=== PATIENT | male | born 1995 | race Hispanic/Latino ===

== ENCOUNTER 2023-11-11 17:00 | Inpatient (IN) | payer OTHER, SELFPAY ==
[2023-11-10] VITALS (7 sets, daily range): BP systolic 90–140; BP diastolic 69–87; BMI 33.3; BMI 33.1
--- NOTE | 2023-11-10 16:41 | ED.GENMED ---
History of Present Illness
<Davis Kirk MD - Last Filed: 11/10/23 22:31>
General
Chief Complaint: Abdominal Symptoms
Source: patient and family (Father)
Exam Limitations: none
Time Seen by Provider: 11/10/23 16:31
History of Present Illness
History of Present Illness:
28-year-old male complaining of diffuse nonlocalizing migratory abdominal pain. Started around midnight. Fairly sudden in nature. Had a normal bowel movement last evening. Had a fleeting episode like this in the past related to constipation but
self resolved. Very brief back pain but also self resolved. No true nausea or vomiting. No fever. No urinary symptoms. Pain waxes and wanes since midnight but never totally goes away. Seen in urgent care and referred to our hospital for
further care
Past History
<Davis Kirk MD - Last Filed: 11/10/23 22:31>
Past History
ED Past Medical History: None
ED Past Surgical History: Other (Jaw surgery)
Review of Systems
<Davis Kirk MD - Last Filed: 11/10/23 22:31>
Review of Systems
All Other Systems: Not applicable
Constitutional: Denies fever
Respiratory: Reports cough (Ongoing cough)
Phy Exam
<Davis Kirk MD - Last Filed: 11/10/23 22:31>
Physical Exam
Physical Exam:
GENERAL: Alert and oriented in no apparent distress
EYE: Orbits normal.
NECK: Supple, no significant adenopathy.
ENT: Pharynx without erythema
CARDIAC: Regular rate and rhythm without any obvious murmurs.
LUNGS: Clear breath sounds,normal
ABDOMEN: Soft, no obvious localizing tenderness. No rebound or guarding no mass or hernia. Testicles normal.
NEUROLOGICAL: Alert and oriented , grossly non-focal
SKIN: Warm and dry, no rash or lesion, no discoloration, skin intact.
MUSCULOSKELETAL: No edema,no deformity.Good color
PSYCH: Normal and appropriate interaction.
Course
<Davis Kirk MD - Last Filed: 11/10/23 22:31>
Orders/Labs/Results
Orders:
Orders
11/10/23 16:38
IV Insert/Care/Rem.- Treatment PRN
0.9% Sodium Chloride 1000 ml [Nss] 1,000 ml IV BOLUS
HYDROmorphone [Dilaudid] 0.5 mg IV NOW STA
Iohexol [Omnipaque] See Protocol PO NOW STA
Ondansetron Injectable [Zofran] 4 mg IV NOW STA
11/10/23 16:39
Electrocardiogram (*1) Stat
Reason for Study: Abdominal Pain
CT Abd/pel W Iv And Oral Contr Urgent
Comment:
Reason For Exam: Diffuse nonlocalizing abdominal pain
EKG- Treatment ONCE
11/10/23 16:42
Complete Blood Count/With Diff Urgent
Comprehensive Metabolic Panel Urgent
Lipase Urgent
Troponin I Urgent
Urinalysis Reflex To Culture Urgent
Date Specimen was Collected: 11/10/23
Time Specimen was Collected: 16:40
11/10/23 18:23
HYDROmorphone [Dilaudid] 0.5 mg .ROUTE .STK-MED ONE
11/10/23 18:25
HYDROmorphone [Dilaudid] 0.5 mg IV NOW STA
11/10/23 20:04
HYDROmorphone [Dilaudid] 0.5 mg IV NOW STA
11/10/23 20:12
Fentanyl Citrate/Pf [Sublimaze] 75 mcg IV NOW STA
11/10/23 20:39
Admit/Transfer Patient As Directed
Co-Sign Provider:
Level of Care: Observation services
Assign to:: Telemetry
Physician / Group: dr mason
Diagnosis: acute appendicits with confined perforation
Reason for Telemetry: Arrhythmia
Date to Stop Telemetry: 11/13/23
Time to Stop Telemetry: 11:00
11/10/23 20:40
PRN Pain Medication Management As Directed
May give lesser potent ordered pain med per pt: Yes
preference::
Protocol:: Medication orders for pain may be administered in a
manner that supports deferring to patient preference
when the pt is:
- Requesting an ordered lesser potent pain medication.
Least to most potent pain medications are defined
as: acetaminophen < NSAID < tramadol < opioids
(morphine, oxycodone, hydromorphone).
- Requesting a lesser dose of the same medication IF
ORDERED.
- Requesting a less intrusive route of administration
if both routes are prescribed by the provider (PO <
IV).
11/10/23 20:41
Code Status As Directed
Resuscitation Status: Full Code
11/10/23 20:48
Piperacillin/Tazo 3.375 Gram [Zosyn] 3.375 gram in 50 ml IV NOW
11/10/23 21:00
Flush (0.9% Sodium Chloride) [Flush (Nss)] See Dose Instructions IV PER PROTOCOL
11/10/23 21:05
Fentanyl Citrate/Pf [Sublimaze] 50 mcg IV NOW STA
11/10/23 21:08
HYDROmorphone [Dilaudid] 1 mg IV NOW STA
11/10/23 21:11
Ketorolac [Toradol] 15 mg IV NOW STA
11/10/23 21:12
CR Chest Portable - 1 View Stat
Comment:
Reason For Exam: cough x 2weeks
Reason Study Needs to be Portable: Unable to Transport
11/10/23 21:25
Lactic Acid Stat
11/10/23 22:27
Acetaminophen [Tylenol] 650 mg PO Q4HPRN PRN
Guaifenesin Solution [Robitussin] 200 mg PO Q4HPRN PRN
HYDROmorphone [Dilaudid] 1 mg IV Q2HPRN PRN
Ketorolac [Toradol] 15 mg IV Q6HPRN PRN
Normosol (Mult Electrolytes) [Normosol-R/Plasmalyte-A] 1,000 ml IV 100 mls/hr
Ondansetron Injectable [Zofran] 4 mg IV Q6HPRN PRN
11/10/23 22:27
Activity As Directed
Activity Level: Out of Bed-Early Mobility
Anti-embolism (WOO) Hose As Directed
Type: Thigh high
Intake/ Output As Directed
Frequency: Per unit guidelines
Notify MD As Directed
Notify physician if: notify surgeon for uncontrolled pain despite analgesics
Pneumatic Compression Sleeves As Directed
Type: Thigh high
Vital Signs As Directed
Frequency: Per unit guidelines
Rx Incentive Spirometry [RESP] Routine
Frequency: q1h while awake
# of times per hour: 10
DX Deep Vein Thrombosis Video Routine
11/11/23 03:00
Piperacillin/Tazo 3.375 Gram [Zosyn] 3.375 gram in 50 ml IV Q6H
11/11/23 Breakfast
NPO
Allow oral meds: Yes
Allow clear liquids: No
NPO with Ice Chips: No
Complete Blood Count/With Diff IN AM
Comprehensive Metabolic Panel IN AM
11/13/23 11:00
DC Protocol for Telemetry ONCE
Abnormal Lab Results
11/10/23
16:42
WBC 13.4 H 10^3/uL
(4.8-10.8)
MCV 79.1 L fL
(80.0-94.0)
MPV 10.9 H fL
(7.4-10.4)
Absolute Neuts (auto) 10.3 H 10^3/uL
(1.4-6.5)
Absolute Monos (auto) 1.2 H 10^3/uL
(0.1-0.6)
Neutrophils % 76.5 H %
(42.2-75.2)
Lymphocytes % 14.1 L %
(20.5-51.1)
11/10/23 16:42
11/10/23 16:42
Vital Signs
Initial and Last Documented VS:
Initial Vital Signs
Temp Pulse Resp BP Pulse Ox
97.8 F 116 16 121/87 98
11/10/23 16:14 11/10/23 16:14 11/10/23 16:14 11/10/23 16:14 11/10/23 16:14
Last Documented Vital Signs
Temp Pulse Resp BP Pulse Ox
97.8 F 104 20 140/76 96
11/10/23 16:14 11/10/23 21:00 11/10/23 21:00 11/10/23 21:00 11/10/23 21:00
<Davis Jon DO - Last Filed: 11/10/23 20:18>
Orders/Labs/Results
Orders:
Orders
11/10/23 16:38
IV Insert/Care/Rem.- Treatment PRN
0.9% Sodium Chloride 1000 ml [Nss] 1,000 ml IV BOLUS
HYDROmorphone [Dilaudid] 0.5 mg IV NOW STA
Iohexol [Omnipaque] See Protocol PO NOW STA
Ondansetron Injectable [Zofran] 4 mg IV NOW STA
11/10/23 16:39
Electrocardiogram (*1) Stat
Reason for Study: Abdominal Pain
CT Abd/pel W Iv And Oral Contr Urgent
Comment:
Reason For Exam: Diffuse nonlocalizing abdominal pain
EKG- Treatment ONCE
11/10/23 16:42
Complete Blood Count/With Diff Urgent
Comprehensive Metabolic Panel Urgent
Lipase Urgent
Troponin I Urgent
Urinalysis Reflex To Culture Urgent
Date Specimen was Collected: 11/10/23
Time Specimen was Collected: 16:40
11/10/23 18:23
HYDROmorphone [Dilaudid] 0.5 mg .ROUTE .STK-MED ONE
11/10/23 18:25
HYDROmorphone [Dilaudid] 0.5 mg IV NOW STA
11/10/23 20:04
HYDROmorphone [Dilaudid] 0.5 mg IV NOW STA
11/10/23 20:12
Fentanyl Citrate/Pf [Sublimaze] 75 mcg IV NOW STA
11/10/23 20:39
Admit/Transfer Patient As Directed
Co-Sign Provider:
Level of Care: Observation services
Assign to:: Telemetry
Physician / Group: dr mason
Diagnosis: acute appendicits with confined perforation
Reason for Telemetry: Arrhythmia
Date to Stop Telemetry: 11/13/23
Time to Stop Telemetry: 11:00
11/10/23 20:40
PRN Pain Medication Management As Directed
May give lesser potent ordered pain med per pt: Yes
preference::
Protocol:: Medication orders for pain may be administered in a
manner that supports deferring to patient preference
when the pt is:
- Requesting an ordered lesser potent pain medication.
Least to most potent pain medications are defined
as: acetaminophen < NSAID < tramadol < opioids
(morphine, oxycodone, hydromorphone).
- Requesting a lesser dose of the same medication IF
ORDERED.
- Requesting a less intrusive route of administration
if both routes are prescribed by the provider (PO <
IV).
11/10/23 20:41
Code Status As Directed
Resuscitation Status: Full Code
11/10/23 20:48
Piperacillin/Tazo 3.375 Gram [Zosyn] 3.375 gram in 50 ml IV NOW
11/10/23 21:00
Flush (0.9% Sodium Chloride) [Flush (Nss)] See Dose Instructions IV PER PROTOCOL
11/10/23 21:05
Fentanyl Citrate/Pf [Sublimaze] 50 mcg IV NOW STA
11/10/23 21:08
HYDROmorphone [Dilaudid] 1 mg IV NOW STA
11/10/23 21:11
Ketorolac [Toradol] 15 mg IV NOW STA
11/10/23 21:12
CR Chest Portable - 1 View Stat
Comment:
Reason For Exam: cough x 2weeks
Reason Study Needs to be Portable: Unable to Transport
11/10/23 21:25
Lactic Acid Stat
11/10/23 22:27
Acetaminophen [Tylenol] 650 mg PO Q4HPRN PRN
Guaifenesin Solution [Robitussin] 200 mg PO Q4HPRN PRN
HYDROmorphone [Dilaudid] 1 mg IV Q2HPRN PRN
Ketorolac [Toradol] 15 mg IV Q6HPRN PRN
Normosol (Mult Electrolytes) [Normosol-R/Plasmalyte-A] 1,000 ml IV 100 mls/hr
Ondansetron Injectable [Zofran] 4 mg IV Q6HPRN PRN
11/10/23 22:27
Activity As Directed
Activity Level: Out of Bed-Early Mobility
Anti-embolism (WOO) Hose As Directed
Type: Thigh high
Intake/ Output As Directed
Frequency: Per unit guidelines
Notify MD As Directed
Notify physician if: notify surgeon for uncontrolled pain despite analgesics
Pneumatic Compression Sleeves As Directed
Type: Thigh high
Vital Signs As Directed
Frequency: Per unit guidelines
Rx Incentive Spirometry [RESP] Routine
Frequency: q1h while awake
# of times per hour: 10
DX Deep Vein Thrombosis Video Routine
11/11/23 03:00
Piperacillin/Tazo 3.375 Gram [Zosyn] 3.375 gram in 50 ml IV Q6H
11/11/23 Breakfast
NPO
Allow oral meds: Yes
Allow clear liquids: No
NPO with Ice Chips: No
Complete Blood Count/With Diff IN AM
Comprehensive Metabolic Panel IN AM
11/13/23 11:00
DC Protocol for Telemetry ONCE
Abnormal Lab Results
11/10/23
16:42
WBC 13.4 H 10^3/uL
(4.8-10.8)
MCV 79.1 L fL
(80.0-94.0)
MPV 10.9 H fL
(7.4-10.4)
Absolute Neuts (auto) 10.3 H 10^3/uL
(1.4-6.5)
Absolute Monos (auto) 1.2 H 10^3/uL
(0.1-0.6)
Neutrophils % 76.5 H %
(42.2-75.2)
Lymphocytes % 14.1 L %
(20.5-51.1)
11/10/23 16:42
11/10/23 16:42
Vital Signs
Initial and Last Documented VS:
Initial Vital Signs
Temp Pulse Resp BP Pulse Ox
97.8 F 116 16 121/87 98
11/10/23 16:14 11/10/23 16:14 11/10/23 16:14 11/10/23 16:14 11/10/23 16:14
Last Documented Vital Signs
Temp Pulse Resp BP Pulse Ox
97.8 F 104 20 140/76 96
11/10/23 16:14 11/10/23 21:00 11/10/23 21:00 11/10/23 21:00 11/10/23 21:00
<Davis Kirk MD - Last Filed: 11/10/23 22:31>
MDM/Problems Addressed
Differential Diagnosis Includes:
Relatively sudden onset of waxing and waning migratory abdominal pain. At times appears fairly uncomfortable although nonsurgical abdomen. Workup in progress.
<Davis Kirk MD - Last Filed: 11/10/23 22:31>
*Pulse Oximetry
Patient hypoxic: no
*EKG
Interpreted by ED Provider?: Yes
Interpretation: normal
Comparison EKG: no comparison EKG present
Heart Rate: 94
Rate: normal
Rhythm: sinus
[place]: normal axis
Interval: normal interval
QRS Pattern: normal QRS
Ischemia: no ischemia
*Critical Care Note
Total Time (30-74mins, 75-104mins- exclusive of procedures): Not Applicable
<Davis Jon DO - Last Filed: 11/10/23 20:18>
*Radiology
Radiology exam reviewed: radiology read reviewed (The findings are most suggestive of acute appendicitis with confined perforation and with the contiguous inflammatory involvement of the terminal ileum and cecum with small volume associated edema in
the right lower quadrant)
<Davis Jon DO - Last Filed: 11/10/23 20:18>
Update Note
Update Note:
Patient returned from CAT scan with severe pain. Patient has an acute appendicitis with perforation. Patient given fentanyl and Zosyn. Patient does show some peritoneal signs. General surgery contacted.
ED Attending Note
<Davis Kirk MD - Last Filed: 11/10/23 22:31>
-
Portions of this chart may have been created with voice recognition software.� Occasional wrong word or��sound alike� substitutions may have occurred due to the inherent limitations of voice recognition software.
Discharge Plan
Departure
Patient Disposition: Admit
Date of Disposition: 11/10/23
Time of Disposition: 20:17
Admit to: Med/Surg
Admit to doctor: General surgery
Presentation/result/management discussed w/ accepting MD/DO: General surgery
Condition: Serious
Covid-19: Not Applicable
Discharge Problem:
Acute appendicitis with perforation and localized peritonitis
Interventions
Interventions:
*Risk Screen - Suicide Last Done: 11/10/23 16:14
*General Assessment Last Done: 11/10/23 16:43
*Neglect/Abuse Screening Last Done: 11/10/23 16:14
ED- Fall Risk Assessment Last Done: 11/10/23 16:50
*ED COVID-19 Vaccine History Last Done: 11/10/23 16:43
*Nursing Disposition Last Done: 11/10/23 22:20
UR-Ubjxie-Nfcbkagbre Assessment Last Done: 11/10/23 16:50
Discharge Date and Time
Discharge Date/Time: 11/10/23 22:20
[2023-11-10] MEDS: NSS 1000 IV (16:45)
[2023-11-10] MEDS: DILAUDID 0.5 MG IV ×3 (16:45→20:04)
[2023-11-10] MEDS: OMNIPAQUE 50 ML PO (16:46)
[2023-11-10] MEDS: ZOFRAN 4 MG IV (16:46)
[2023-11-10 16:56] LABS: % Basophils 0.1 % (0-2); % Eosinophils 0.4 % (0-6); % Immature Granulocytes 0.3 % (0-0.5); % Lymphocytes 14.1 % (20.5-51.1); % Monocytes 8.6 % (1.7-9.3); % Neutrophils 76.5 % (42.2-75.2); Absolute Eosinophils 0.1 10^3/uL (0-0.7); Absolute Lymphocytes 1.9 10^3/uL (1.2-3.4); Absolute Monocytes 1.2 10^3/uL (0.1-0.6); Absolute Neutrophils 10.3 10^3/uL (1.4-6.5); Hematocrit 46.8 % (39.0-52.0); Hemoglobin 16.2 g/dL (13.0-18.0); Mean Corp Hgb Conc. 34.6 g/dL (33.0-37.0); Mean Corpuscular Hgb 27.4 pg (27.0-31.0); Mean Corpuscular Volume 79.1 fL (80.0-94.0); Mean Platelet Volume 10.9 fL (7.4-10.4); Nucleated Red Blood Cells % 0 % (-); Platelet Count 276 10^3/uL (130-400); Red Blood Cell Count 5.92 10^6/uL (4.70-6.10); Red Cell Dist. Width 12.3 % (11.5-14.5); Urine Albumin Negative (Neg - Trace); Urine Bilirubin Negative (Negative); Urine Character Clear (Clear); Urine Color Yellow; Urine Glucose Negative (Negative); Urine Ketone Negative (Negative); Urine Leukocyte Negative (Negative); Urine Nitrite Negative (Negative); Urine Occult Blood Negative (Negative); Urine Specific Gravity 1.025 (<1.030); Urine Urobilinogen Negative (Neg - 1+); White Blood Cell Count 13.4 10^3/uL (4.8-10.8)
[2023-11-10 17:15] LABS: ALT (SGPT) 48 U/L (0-50); AST (SGOT) 36 U/L (17-59); Albumin 4.7 g/dl (3.5-5.0); Alkaline Phosphatase 73 U/L (38-126); Blood Urea Nitrogen 14 mg/dl (9-20); Calcium 9.7 mg/dl (8.4-10.2); Carbon Dioxide 26 mmol/L (22-30); Chloride 100 mmol/L (98-107); Estimated Creatinine Clearance 119 ml/min; Glucose 98 mg/dl (70-99); Sodium 142 mmol/L (135-145); Total Bilirubin 0.8 mg/dl (0.2-1.3); Total Protein 7.5 g/dl (6.3-8.2); eGFR > 60.00
[2023-11-10 17:16] LABS: Lipase 56 U/L (23-300)
[2023-11-10 17:29] LABS: Troponin I < 0.012 ng/ml
[2023-11-10] MEDS: SUBLIMAZE 75 MCG IV (20:14)
--- NOTE | 2023-11-10 21:19 | HPS.HSE ---
Addendum entered and electronically signed by Lv Nuñez MD 11/14/23 07:28:
CDI: Sepsis present on admission
Addendum entered and electronically signed by Lv Nuñez MD 11/11/23 09:40:
Patient seen and examined.
Patient is a 28 yo M with a PMH of obesity who presents with 24 hours of RLQ/flank pain. Christcalin states that he had no abdominal pain or discomfort prior to Friday evening. He then acutely developed abdominal pain and discomfort. He initially
tried laxatives with no improvement in his symptoms. Persistence in symptoms prompted presentation to the ED. He denies any fevers or chills. Denies any nausea or vomiting. He denies any chronic GI issues or bloody stools. He does report having
a cough over the past 2 weeks.
Gen: NAD, uncomfortable with pain
Abd: soft, tender to palpation diffusely though primarily in RLQ, ND, peritoneal
Labs and CT scan imaging were reviewed.
Patient is a 28 yo M p/w perforated acute appendicitis
The natural history and pathophysiology of appendicitis was reviewed. Anatomy was reviewed. CT scan imaging as it relates to his appendix was reviewed. Options for management including medical management with antibiotics and percutaneous drainage
by IR versus surgical management with laparoscopic appendectomy possible drainage of intra-abdominal abscess was considered and discussed. The pros and cons of both approaches was discussed. Specifically, we discussed inability/unsafe surgical
dissection given the perforated nature of his abscess with potential injury to small bowel and colon and a need for aborting his appendectomy and placement of a operative drain. We also discussed that IR drainage would commit him to a drainage
catheter for several weeks and a potentially more prolonged hospitalization. Difficult clinical decision, however, if symptoms truly presented within 24 hours then likely adhesions are still fresh and should be able to be broken up bluntly.
Because of this would recommend operative exploration with a drainage of intra-abdominal abscess and possible laparoscopic appendectomy. Patient agrees to proceed.
Plan for laparoscopic appendectomy and drainage of intra-abdominal abscess. The procedure itself, as well as the risks, benefits, and alternatives was discussed. Specifically, we discussed the risks of bleeding, infection, injury to surrounding
structures (bowel), staple line leak, inability to perform appendectomy, and potential need for further procedures. All questions answered. Consent signed.
Of note, patient's father was present for the encounter.
-- Laparoscopic appendectomy, drainage of intra-abdominal abscess
-- NPO, IVF
-- Abx: Zosyn
-- Pain control: Tylenol and IV Dilaudid PRN
Original Note:
Family Physician
-
Family Physician: * NONE
Chief Complaint
-
abd pain
History of Present Illness
28 yo male with no past med hx comes to ED with complaints of abd pain that woke him up at 1 am. Throughout the day pain worsened and he went to urgent care. and they sent him to ED for further eval. Denies nausea and vomiting. Denies fevers. Denies
any voiding issues. Had a normal bowel movement last evening. Had a fleeting episode like this in the past related to constipation but self resolved. Took laxatives thinking maybe this was constipation related and did not improve symptoms. Very
brief back pain but also self resolved.
ct abd: IMPRESSION:
The findings are most suggestive of acute appendicitis with confined perforation and with the contiguous inflammatory involvement of the terminal ileum and cecum with small volume associated edema in the right lower quadrant
WBC 13.4/ neutr 76.5
BP normal limits, slight tachy low 100s- likely pain related.
Pt is very uncomfortable , abd distended and mod firm and exquisitely tender
Medical History
Past Medical History
Past Medical History: Reports None
Past Surgical History: Reports Other (plates in left side of jaw)
Social History
Tobacco: Non-smoker
Alcohol: None
Drug: None
Personal: Single
Living: With Family
Employment: Employed
Family History
Family History: Not pertinent
Allergies / Home Medications
Allergies reflects when Allergies were last updated in [facility].
Home Medications with original date entered in [facility]
Allergy/Medication List:
denies taking medications on daily basis
Review of Systems
-
History Source: Patient and Family
A 12 point ROS was completed and negative except as noted: Yes
Constitutional: Reports No Symptoms
EENT: Reports No Symptoms
Respiratory: Reports Cough (x 2weeks- dry, non productive)
Cardiac: Reports No Symptoms
Abdomen/GI: Reports Abdominal Pain (12/03)
: Reports No Symptoms
Musculoskeletal: Reports No Symptoms
Skin: Reports No Symptoms
Neurological: Reports No Symptoms
Physical Exam
Vital Signs
Vital Signs
Temp Pulse Resp BP Pulse Ox
97.8 F 104 20 140/76 96
11/10/23 16:14 11/10/23 21:00 11/10/23 21:00 11/10/23 21:00 11/10/23 21:00
Physical Exam
General: Well Developed, Appears in Distress and Pain
HEENT: NormoCephalic, Anicteric and Moist mucous membranes
Respiratory: Clear and Non Labored Respirations
Cardiac: S1/S2 and Tachycardia (low 100s)
Breast: Deferred by me
GI: Tender (very tender with guarding ) and Distended (mod firm)
Rectal: Deferred by Provider
Genito-urinary: Deferred by me
Musculoskeletal: No Clubbing and No Cyanosis
Skin: Warm
Neuro: Awake, Alert, Oriented and AO x 3
Hematologic/Lymphatic: Lymphadenopathy
Psych: Calm
Laboratory Results
-
11/10/23 16:42
11/10/23 16:42
Laboratory Results
Total Bilirubin 0.8 mg/dl (0.2-1.3) 11/10/23 16:42
AST 36 U/L (17-59) 11/10/23 16:42
ALT 48 U/L (0-50) 11/10/23 16:42
Alkaline Phosphatase 73 U/L (38-126) 11/10/23 16:42
Troponin I < 0.012 ng/ml 11/10/23 16:42
Lipase 56 U/L (23-300) 11/10/23 16:42
Impression/Plan
-
IMPRESSION:
acute appendicitis with confined perforation
PLAN:
Admit to service of Dr Ojeda
Tele (monitor tachycardia)
#acute appendicitis with confined perforation
-NPO x meds
-ct abd: IMPRESSION:
The findings are most suggestive of acute appendicitis with confined perforation and with the contiguous inflammatory involvement of the terminal ileum and cecum with small volume associated edema in the right lower quadrant
-WBC 13.4/ neutr 76.5
-BP normal limits, slight tachy low 100s- likely pain related.
-Pt is very uncomfortable,writhing in bed , abd distended and mod firm and exquisitely tender--> dr ojeda notified of these findings via TT (awaiting response)
-pain control:Dilaudid, toradol,tylenol
- IVF: Normosol@100
-Zosyn q6h
-zofran prn
-Will check lactic acid.
#Cough x 2 weeks
-check cxr
-pt thought is was allergy related, cough dry, but harsh
-robitussin prn
DVT proph: scd for now as pt likely needing OR
full code
discussed with father at bedside
[2023-11-10] MEDS: TORADOL 15 MG IV (21:21)
[2023-11-10] MEDS: ZOSYN 50 IV (21:22)
[2023-11-10 21:47] LABS: Lactic Acid 1.1 mmol/L (0.7-2.0)
[2023-11-10] MEDS: NORMOSOL-R/PLASMALYTE-A 1000 IV (22:43)
--- NOTE | 2023-11-10 23:00 | PTCARENOTE ---
Pt. arriving from ED via stretcher and able to walk to bed with steady gait. Pt. A&Ox3, currently in NAD, denies nausea at present, and VSS. Patient and father oriented to room and unit policies, questions/concerns addressed, bed locked and in
lowest position, side rails in place, and call light within reach.
[2023-11-10] MEDS: TYLENOL 650 MG PO (23:06)
[2023-11-10] MEDS: ROBITUSSIN 200 MG PO (23:06)
[2023-11-11] VITALS (14 sets, daily range): BP systolic 10–136; BP diastolic 65–85
[2023-11-11] MEDS: DILAUDID 1 MG IV ×3 (02:41→10:11)
[2023-11-11] MEDS: ZOSYN 50 IV ×4 (03:06→21:02)
[2023-11-11] MEDS: TORADOL 15 MG IV (04:44)
[2023-11-11 06:53] LABS: % Basophils 0.1 % (0-2); % Eosinophils 0.5 % (0-6); % Immature Granulocytes 0.4 % (0-0.5); % Lymphocytes 11.8 % (20.5-51.1); % Neutrophils 76.2 % (42.2-75.2); Absolute Eosinophils 0.1 10^3/uL (0-0.7); Absolute Immature Granulocytes 0.1 10^3/uL (0-0.05); Absolute Lymphocytes 1.7 10^3/uL (1.2-3.4); Absolute Monocytes 1.6 10^3/uL (0.1-0.6); Absolute Neutrophils 11.1 10^3/uL (1.4-6.5); Hematocrit 43.9 % (39.0-52.0); Hemoglobin 14.9 g/dL (13.0-18.0); Mean Corp Hgb Conc. 33.9 g/dL (33.0-37.0); Mean Corpuscular Hgb 27.4 pg (27.0-31.0); Mean Corpuscular Volume 80.8 fL (80.0-94.0); Mean Platelet Volume 11.5 fL (7.4-10.4); Nucleated Red Blood Cells % 0 % (-); Platelet Count 273 10^3/uL (130-400); Red Blood Cell Count 5.43 10^6/uL (4.70-6.10); Red Cell Dist. Width 12.4 % (11.5-14.5); White Blood Cell Count 14.6 10^3/uL (4.8-10.8)
[2023-11-11 07:02] LABS: ALT (SGPT) 35 U/L (0-50); AST (SGOT) 27 U/L (17-59); Albumin 4.2 g/dl (3.5-5.0); Alkaline Phosphatase 65 U/L (38-126); Blood Urea Nitrogen 13 mg/dl (9-20); Calcium 8.9 mg/dl (8.4-10.2); Carbon Dioxide 25 mmol/L (22-30); Chloride 99 mmol/L (98-107); Estimated Creatinine Clearance > 125 ml/min; Glucose 97 mg/dl (70-99); Potassium 3.9 mmol/L (3.5-5.1); Sodium 137 mmol/L (135-145); Total Bilirubin 1.5 mg/dl (0.2-1.3); Total Protein 6.8 g/dl (6.3-8.2); eGFR > 60.00
--- NOTE | 2023-11-11 07:31 | PTCARENOTE ---
Peaked T waves noted on tele strip this AM. Dr. Nuñez made aware. Tele strip unchanged from EKG in ER per Dr. Nuñez. Care ongoing at this time.
[2023-11-11] MEDS: ROBITUSSIN 200 MG PO ×2 (07:40→21:02)
[2023-11-11] MEDS: NORMOSOL-R/PLASMALYTE-A 1000 IV (07:51)
--- NOTE | 2023-11-11 09:41 | W.SUR.PREOP ---
Pre-Operative Surgical Note
-
I have examined this patient prior to the performance of the scheduled procedure.
The patient's condition is unchanged from the time of the current History and
Physical and the patient is able to undergo the scheduled procedure.
--- NOTE | 2023-11-11 10:24 | CM ---
Reviewed the chart notes and spoke with the patient and his father at the bedside. The patient resides with his father in a third floor apartment with three flights of steps to enter. The patient reports no DME/VN/SNF in the past. The patient
confirmed his pharmacy of choice is [facility]. The patient is scheduled for the OR today for an appendectomy. CM continues to be available to patient/family and is monitoring medical plan for needs at discharge.
Plan: Discharge plans will depend on the patient's progress. Hopefully home with no needs.
--- NOTE | 2023-11-11 14:18 | W.IMMPOSTOP ---
Addendum entered and electronically signed by Lv Nuñez MD 11/11/23 14:43:
[facility]#[id number]
Original Note:
Surgical Immed Post Op Note
-
Primary Surgeon: Savannah
Assisting Surgeon: None
Pre-op Diagnosis: Acute perforated appendicitis
Post-op Diagnosis: Acute perforated appendicitis
Procedure Performed: Laparoscopic appendectomy, drainage of intra-abdominal abscess
Anesthesia Type: General
Specimen / Cultures:
1. Appendix
Estimated Blood Loss: 11 cc
Complications: None
Operative Findings:
1. Severe dense inflammation of RLQ, abscess pocket with purulence drained, no feculence
2. Appendix identified, presumed base taken with stallworth load stapler, dissected carried out in retrocecal course using mostly blunt dissection and some [employer] energy, tip unable to be completely dissected free, ligated with Endoloop
3. 19 Fr Donnell drain into pelvis and RLQ operative field
--- NOTE | 2023-11-11 16:34 | PTCARENOTE ---
1615: Patient arrived back to 2S post procedure. Lap sites open to closed with glue and open to air clean dry and intact. HARPAL drain present. Ahn present. Call bejarano within reach and bed in lowest position. Dad at bedside.
[2023-11-11] MEDS: TYLENOL 650 MG PO (22:44)
[2023-11-11] MEDS: MELATONIN 5 MG PO (23:02)
[2023-11-11] MEDS: TORADOL 10 MG IV (23:06)
[2023-11-12] MEDS: NORMOSOL-R/PLASMALYTE-A IV ×2 (00:04→16:23)
[2023-11-12] MEDS: ZOSYN 50 IV ×4 (03:03→21:43)
[2023-11-12] MEDS: DILAUDID 1 MG IV (03:03)
[2023-11-12] MEDS: MYLICON 80 MG PO (03:08)
[2023-11-12 03:30] VITALS: BP 101/53
--- NOTE | 2023-11-12 04:06 | DOWNTIME ---
There was a [employer] Zone Downtime on 11/12/2023 from 0100 to 11/12/2023 at 0300. Downtime documentation of patient's care, including medication administrations, has been reconciled in the electronic record per guidelines. Refer to the
patient's paper chart under the miscellaneous tab to see printed paper medication records and downtime forms.
[2023-11-12] MEDS: NORMOSOL-R/PLASMALYTE-A 1000 IV ×2 (06:40→16:23)
--- NOTE | 2023-11-12 07:19 | W.PN.GS2 ---
Today's Communication / Plan
-
-- Clears
-- Pain control: Tylenol, Toradol, IV Dilaudid PRN
-- Abx: Zosyn
-- IVF
-- DC Ahn
Assessment / Plan
-
Patient is a 28 yo M POD#1 s/p laparoscopic appendectomy and drainage of intra-abdominal abscess
Recovering well overall. No major postoperative concerns. Ileus watch given degree of appendicitis and need for mobilization of the UTI.
-- Clears
-- Pain control: Tylenol, Toradol, IV Dilaudid PRN
-- Abx: Zosyn
-- IVF
-- DC Ahn
-- DVT: Lovenox
-- OOB/ambulate
Subjective Data
-
Date of Service: November 12, 2023
Feels much improved compared to preop. Continues to have some abdominal soreness. Mild brief episodes of nausea, none currently. No vomiting. No flatus or BM. Ahn in place draining clear urine. Ambulating.
Objective Data
-
Intake and Output
11/11/23 11/12/23 11/13/23
06:59 06:59 06:59
Intake Total 3510 / 3510
Output Total 1590 / 1590
Balance 192 / 1920
Intake:
Oral fluids 960 / 960
IV fluids (Total) 2350 / 2350
normosol 150 / 150
IV piggybacks 200 / 200
Output:
Drain Output (Total) 30 / 30
Left Abdomen Amita 30 / 30
Urine, Ahn 1560 / 1560
Other:
Number of approximated MODERATE 1
amounts of urine
Vital Signs
Temp Pulse Resp BP Pulse Ox
97.6 F 79 18 101/53 97
11/12/23 03:30 11/12/23 03:30 11/12/23 03:30 11/12/23 03:30 11/12/23 03:30
Calcium 8.9 mg/dl (8.4-10.2) 11/11/23 04:59
Total Bilirubin 1.5 mg/dl (0.2-1.3) H 11/11/23 04:59
AST 27 U/L (17-59) 11/11/23 04:59
ALT 35 U/L (0-50) 11/11/23 04:59
Alkaline Phosphatase 65 U/L (38-126) 11/11/23 04:59
Total Protein 6.8 g/dl (6.3-8.2) 11/11/23 04:59
Albumin 4.2 g/dl (3.5-5.0) 11/11/23 04:59
Physical Exam
-
Gen: NAD
Abd: soft, mild/moderate tenderness, distended, non-peritoneal, incisions c/d/i - no erythema, ecchymosis or drainage, HARPAL serosang
: Ahn clear urine
[2023-11-12 07:54] VITALS: BP 110/73
[2023-11-12 07:54] LABS: Hematocrit 41.1 % (39.0-52.0); Hemoglobin 14.3 g/dL (13.0-18.0); Mean Corp Hgb Conc. 34.8 g/dL (33.0-37.0); Mean Corpuscular Hgb 27.8 pg (27.0-31.0); Mean Platelet Volume 10.7 fL (7.4-10.4); Platelet Count 263 10^3/uL (130-400); Red Blood Cell Count 5.14 10^6/uL (4.70-6.10); Red Cell Dist. Width 12.2 % (11.5-14.5); White Blood Cell Count 15.4 10^3/uL (4.8-10.8)
[2023-11-12] MEDS: DILAUDID 0.5 MG IV ×2 (07:55→17:33)
[2023-11-12] MEDS: ROBITUSSIN 200 MG PO (07:55)
[2023-11-12 08:25] LABS: Blood Urea Nitrogen 12 mg/dl (9-20); Calcium 8.9 mg/dl (8.4-10.2); Carbon Dioxide 27 mmol/L (22-30); Chloride 100 mmol/L (98-107); Estimated Creatinine Clearance > 125 ml/min; Glucose 114 mg/dl (70-99); Potassium 4.7 mmol/L (3.5-5.1); Sodium 141 mmol/L (135-145); eGFR > 60.00
--- NOTE | 2023-11-12 09:53 | CM ---
Reviewed the chart notes. Patient is POD#1 s/p laparoscopic appendectomy and drainage of intra-abdominal abscess. Amita drain in place. Ahn to be discontinued. Ambulation ad main. CM continues to be available to patient/family and is
monitoring medical plan for needs at discharge.
Plan: Discharge to home when medically stable. No anticipated needs identified at this time.
[2023-11-12 11:14] VITALS: BP 109/54
[2023-11-12] MEDS: TORADOL 10 MG IV ×2 (13:29→20:34)
[2023-11-12] MEDS: LOVENOX 40 MG SC (17:26)
[2023-11-12 19:30] VITALS: BP 110/73
[2023-11-12 23:36] VITALS: BP 112/64
[2023-11-12] MEDS: TYLENOL 650 MG PO (23:55)
[2023-11-13] MEDS: MELATONIN 5 MG PO (01:27)
[2023-11-13] MEDS: NORMOSOL-R/PLASMALYTE-A 1000 IV (02:57)
[2023-11-13] MEDS: ZOSYN 50 IV ×4 (03:00→22:05)
[2023-11-13 03:07] VITALS: BP 110/60
[2023-11-13] MEDS: TORADOL 10 MG IV (03:09)
[2023-11-13] MEDS: ROBITUSSIN 200 MG PO (06:34)
[2023-11-13 08:00] VITALS: BP 110/63
[2023-11-13] MEDS: DILAUDID 0.5 MG IV (08:25)
--- NOTE | 2023-11-13 10:06 | W.PN.GS2 ---
Today's Communication / Plan
-
-- LRD
-- Pain control: Tylenol, Toradol, Tramadol, IV Dilaudid PRN
-- Abx: Zosyn
-- Tentative plan for DC HARPAL and DC patient tomorrow if progresses well today
Assessment / Plan
-
Patient is a 28 yo M POD#2 s/p laparoscopic appendectomy and drainage of intra-abdominal abscess
AVSS
Labs pending
Recovering well overall. No major postoperative concerns. Much of pain and discomfort related to HARPAL drain, plan to maintain for 1 additional day with dietary advancement. Passing flatus and loose stools, plan for dietary advancement
-- LRD
-- Pain control: Tylenol, Toradol, Tramadol, IV Dilaudid PRN
-- Abx: Zosyn
-- HLIVF
-- DVT: Lovenox
-- OOB/ambulate
Subjective Data
-
Date of Service: November 13, 2023
Reports slight improvement in pain. Most of discomfort associated with HARPAL drain. No nausea or vomiting. No reports of increased bloating. Reports passing flatus and loose, liquidy, nonbloody stools. Afebrile. Ambulating. Voiding clear urine.
Objective Data
-
Intake and Output
11/12/23 11/13/23 11/14/23
06:59 06:59 06:59
Intake Total 3510 / 3510 3128 / 3128
Output Total 1590 / 1590 2105 / 2105
Balance 1920 / 1920 1023 / 1023
Intake:
Oral fluids 960 / 960 728 / 728
IV fluids (Total) 2350 / 2350 2200 / 2200
normosol 150 / 150
IV piggybacks 200 / 200 200 / 200
Amount instilled into Drain ( 0 / 0
Total)
Torrey-Dee 0 / 0
Output:
Drain Output (Total) 105 / 105
Torrey-Dee 105 / 105
Left Abdomen Amita
Urine, Ahn 1560 / 1560 1450 / 1450
Urine, Voided 550 / 550
Other:
Number of approximated MODERATE 1
amounts of urine
Vital Signs
Temp Pulse Resp BP Pulse Ox
98.5 F 85 18 110/63 100
11/13/23 08:00 11/13/23 08:00 11/13/23 08:00 11/13/23 08:00 11/13/23 08:00
Calcium 8.9 mg/dl (8.4-10.2) 11/12/23 07:40
Total Bilirubin 1.5 mg/dl (0.2-1.3) H 11/11/23 04:59
AST 27 U/L (17-59) 11/11/23 04:59
ALT 35 U/L (0-50) 11/11/23 04:59
Alkaline Phosphatase 65 U/L (38-126) 11/11/23 04:59
Total Protein 6.8 g/dl (6.3-8.2) 11/11/23 04:59
Albumin 4.2 g/dl (3.5-5.0) 11/11/23 04:59
Physical Exam
-
Gen: NAD
Abd: soft, tender to palpation primarily in LLQ (improved), mild distension, no diffuse peritonitis, incisions c/d/i - no erythema, ecchymosis or drainage, HARPAL serosang
--- NOTE | 2023-11-13 10:47 | CM ---
Reviewed the chart notes. Per note, d/c HARPAL drain tomorrow and discharge. CM continues to be available to patient/family and is monitoring medical plan for needs at discharge.
Plan: Discharge to home when medically stable. No needs anticipated.
[2023-11-13 11:18] LABS: Hematocrit 41.2 % (39.0-52.0); Mean Corpuscular Hgb 28.3 pg (27.0-31.0); Mean Corpuscular Volume 83.2 fL (80.0-94.0); Mean Platelet Volume 10.7 fL (7.4-10.4); Platelet Count 253 10^3/uL (130-400); Red Blood Cell Count 4.95 10^6/uL (4.70-6.10); Red Cell Dist. Width 12.2 % (11.5-14.5); White Blood Cell Count 10.1 10^3/uL (4.8-10.8)
[2023-11-13 11:34] LABS: Blood Urea Nitrogen 11 mg/dl (9-20); Calcium 8.9 mg/dl (8.4-10.2); Carbon Dioxide 23 mmol/L (22-30); Chloride 104 mmol/L (98-107); Estimated Creatinine Clearance > 125 ml/min; Glucose 94 mg/dl (70-99); Potassium 4.2 mmol/L (3.5-5.1); Sodium 139 mmol/L (135-145); eGFR > 60.00
[2023-11-13 11:52] VITALS: BP 148/99
--- NOTE | 2023-11-13 13:00 | PN.CDI ---
CDI
- -
CDI:
Physician Documentation Request
Admit Date: 11/11/23 17:00
Dear Doctor Savannah,
Please review the following and provide your response in the progress notes.
Patient was admitted for acute appendicitis with confined perforation.
11/09 wbc 13.4, patient has remained afebrile, HR on presentation 93-116, RR 16-26
Please clarify which of the following most accurately describes the status of the patient's infection:
Sepsis
- Systemic manifestations of infection, with 2 or more SIRS criteria which include:
- Fever >100.4 degrees F or hypothermia < 96.8 degrees F
- Leukocytosis - WBC > 12,000 or leukopenia - WBC < 4,000 or > 10% bands
- Tachycardia > 90 beats per minute
- Tachypnea - RR > 20 breaths per minute or PaCO2 , 32mmHg
Source: Merck Manual 2013
Localized Infection Only, Without Systemic Illness
Other
Use of terms such as suspected, likely, concern for, or probable (associated with a specific diagnosis that is being evaluated, monitored, or treated as if it exists) are acceptable and can be coded in the inpatient setting, when documented at the
time of discharge.
Thank you,
Shayy Krueger RN, BSN
CDI Specialist
tiger text
Please use your independent medical judgment in providing your response.
[2023-11-13] MEDS: TORADOL 15 MG IV (16:23)
[2023-11-13] MEDS: LOVENOX 40 MG SC (16:31)
[2023-11-13 16:53] VITALS: BP 129/70
[2023-11-13 20:00] VITALS: BP 109/73
[2023-11-13 23:59] VITALS: BP 118/71
[2023-11-14 03:02] VITALS: BP 120/69
[2023-11-14] MEDS: ZOSYN 50 IV ×2 (03:47→09:36)
[2023-11-14 07:40] VITALS: BP 109/65
--- NOTE | 2023-11-14 09:23 | W.PN.GS2 ---
Today's Communication / Plan
-
Dispo planning
Assessment / Plan
-
Patient is a 28 yo M POD#3 s/p laparoscopic appendectomy and drainage of intra-abdominal abscess
AVSS
Labs stable from previous
HARPAL removed at bedside
-- LRD
-- Pain control: Tylenol, Toradol, Tramadol prn
-- Abx: Zosyn
-- DVT: Lovenox
-- OOB/ambulate
-- D/C to home
Subjective Data
-
Date of Service: November 14, 2023
Patient seen and examined at bedside with Dr. Philip. Hunter n/v. Tolerating diet. Pain to drain site but otherwise notes that pain is much improved.
Objective Data
-
Intake and Output
11/13/23 11/14/23 11/15/23
06:59 06:59 06:59
Intake Total 3128 / 3128 1560 / 1560
Output Total 2105 / 2105 60 / 60
Balance 1023 / 1023 1500 / 1500
Intake:
Oral fluids 728 / 728 960 / 960
IV fluids (Total) 2200 / 2200 400 / 400
IV piggybacks 200 / 200 200 / 200
Amount instilled into Drain ( 0 / 0
Total)
Torrey-Dee 0 / 0
Output:
Drain Output (Total) 105 / 105 60 / 60
Torrey-Dee 105 / 105 60 / 60
Urine, Ahn 1450 / 1450
Urine, Voided 550 / 550
Other:
Number of approximated MODERATE 1 2
amounts of urine
Vital Signs
Temp Pulse Resp BP Pulse Ox
98.7 F 78 16 109/65 96
11/14/23 07:40 11/14/23 07:40 11/14/23 07:40 11/14/23 07:40 11/14/23 07:40
Lab Results
11/13/23 11:07
11/13/23 11:07
Calcium 8.9 mg/dl (8.4-10.2) 11/13/23 11:07
Total Bilirubin 1.5 mg/dl (0.2-1.3) H 11/11/23 04:59
AST 27 U/L (17-59) 11/11/23 04:59
ALT 35 U/L (0-50) 11/11/23 04:59
Alkaline Phosphatase 65 U/L (38-126) 11/11/23 04:59
Total Protein 6.8 g/dl (6.3-8.2) 11/11/23 04:59
Albumin 4.2 g/dl (3.5-5.0) 11/11/23 04:59
Physical Exam
-
Gen: NAD
Abd: soft, tender to palpation primarily in LLQ (improved), ND, incisions c/d/i - no erythema, ecchymosis or drainage, HARPAL serous (removed)
--- NOTE | 2023-11-14 09:43 | W.DCSUMMARY ---
Discharge Summary
Discharge Data
Date of Admission: 11/11/23
Date of Discharge: 11/14/23
-
Pending Results: No
Hospital Course
This is a 28 yo male who presented with 24hours of RLQ pain with exam and imaging consistent with acute appendicitis. He was taken for laparoscopic appendectomy with severe dense appendiceal inflammation and abscess noted intraoperatively. A HARPAL
drain was left in place intraoperatively and was able to be removed prior to discharge was noted to be serous. Diet was able to be advanced and well tolerated post operatively. He was discharged to home on an additional week of antibiotics.
Discharge Plan
-
Patient Disposition: Home (Routine Discharge)
Discharge Diagnosis/Procedures: Acute appendicitis status post laparoscopic appendectomy
Condition: Good
Diet: As tolerated and Regular
Activity: No strenuous activity
Additional Activity: Do not lift over 15lbs for the next 2-3 weeks
Driving Restrictions: No driving for 24 hours
Bathing Restrictions: OK to Shower
Wound Care: Ok to shower and gently wash incisions with soap and water. Ok to remove the dressing over your drain site for showering. Change dressing daily with large bandage or clean gauze until drainage from site no longer present.
Activity Restrictions/Additional Instructions:
Call your surgeon if you have a fever >100.5, nausea with vomiting, or worsening pain
Referrals:
Lv Nuñez MD [Active] - in two to four weeks
Prescriptions:
New
acetaminophen 325 mg tablet
650 mg PO Q4HPRN PRN (Reason: mild pain) Qty: 1 0RF
ibuprofen 200 mg tablet
400 - 600 mg PO Q6HPRN PRN (Reason: moderate pain) Qty: 1 0RF
tramadol 50 mg tablet
25 - 50 mg PO Q6HPRN PRN (Reason: severe pain/breakthrough pain) Qty: 5 0RF
amoxicillin-pot clavulanate 875-125 mg tablet
1 tab PO Q12 Qty: 14 0RF
Discharge Orders:
Discharge Patient (As Directed); Ordered 11/14/23
Ordered By: Echo Fairbanks
Discharge Date and Time
Print Language: IRISH
--- NOTE | 2023-11-14 10:28 | CM ---
Reviewed the chart notes. HARPAL drain removed at bedside. Patient and his father seen ambulating in hallway ad main. Patient is being discharged to home today with no needs anticipated. Patient's father will provide transportation home. CM
continues to be available to patient/family and is monitoring medical plan for needs at discharge.
Plan: Discharge to home today.
[2023-11-14 11:54] VITALS: BP 120/87
== END 2023-11-14 12:23 | disposition home or self-care (01) | DRG 853 ==
LOC: 2 SOUTH 17:00
PROVIDERS: Nurse Practitioner Family; Surgery; ADMITTING PHYSICIAN Surgery; EMERGENCY PHYSICIAN Emergency Medicine
PROC: 0W9G30Z Drainage of Peritoneal Cavity with Drainage Device, Percutaneous Approach (ICD-10-PCS; 2023-11-11)
PROC: 0DTJ4ZZ Resection of Appendix, Percutaneous Endoscopic Approach (ICD-10-PCS; 2023-11-11)
DX: A41.9 Sepsis, unspecified organism (principal); K35.33 Acute appendicitis with perforation, localized peritonitis, and gangrene, with abscess; M54.9 Dorsalgia, unspecified; R05.9 Cough, unspecified
CPT/HCPCS: 88304; 71045; 74177; 80048; 80053; 81003; 83605; 83690; 84484; 85025; 85027; 93005; 96361; 96374; 96375; 96376; 99285; C1776; Q9967